=== PATIENT | male | born 1990 | race Caucasian/White ===

== ENCOUNTER 2024-08-05 09:56 | Outpatient (AMB) | payer BC, SELFPAY ==
--- NOTE | 2024-08-05 10:14 | A.OFFPC_ITS ---
Vital Signs 08/05/24 10:21 Height 5 ft 5 in Weight 223 lb BMI 37.1 BP 102/60 Blood Pressure Location Rt brachial Position Sitting Respiration 14 Pulse 67 Pulse Source Pulse Oximeter Temp 98.1 F Temp Source Oral Pulse Oximetry (%) 97 Oxygen Delivery Method Room Air Intake Visit Reasons: Headaches Intake Note: Establish care /pt states he has been have headaches more constantly than usual pt has taken otc meds which helps but hes been taking otc med to often and does not want to over take these meds everyday. Allergies No Known Allergies Allergy (Verified 08/05/24 10:17) Medication List - Last Reconciled 08/05/24 by Aguila Whipple MD No Known Home Meds Tobacco use date assessed: 08/05/24 Dental Screening Dental Screen Date: 08/05/24 Did you have a dental visit in the last 12 months?: Yes Did you have a dental problem in the last 6 months where you did not have access to dental care?: Yes Was dental information given to patient?: Patient has dentist HPI Headaches HPI Details New Patient? ?? Prior PCP:? No Pcp in past 5 yrs Acute issue(s):? Was getting daily H/As a few mos ago but decreased now. Posterior H/As. About 7 Yrs ago had head trauma to back of head/concussion. Couple times a week to couple a month. Tries Excedrin. ?? PMHx:? None SurgHx:? R wrist fx repair. FHx:? GM Throat CA. SocHx:? quit cigs 6 yrs ago. Vapes. EtOH 1-2 dr twice a week. MJ daily. [facility] Medical History (Updated 08/05/24 @ 10:48 by Adalberto De La Cruz) Diya's fracture Social History Housing: Apartment Patient Tobacco Use Status: Never used Tobacco e-Cigarette/Vaping Use: Currently Using service: No Current occupational status: employed Current occupation: production Current occupational exposures/hazards: No Cognitive needs: No Hearing needs: No Vision needs: No Questionnaire PHQ-9 Over the last 2 weeks, how often have you been bothered by any of the following problems? 1. Little interest or pleasure in doing things: not at all 2. Feeling down, depressed, or hopeless: not at all 3. Trouble falling or staying asleep, or sleeping too much: not at all 4. Feeling tired or having little energy: not at all 5. Poor appetite or overeating: not at all 6. Feeling bad about yourself - or that you are a failure or have let yourself or your family down: not at all 7. Trouble concentrating on things, such as reading the newspaper or watching television: not at all 8. Moving or speaking so slowly that other people could have noticed. Or the opposite - being so fidgety or restless that you have been moving around a lot more than usual: not at all 9. Thoughts that you would be better off or of hurting yourself in some way: not at all Total score: 0 Depression Screening Interpretation: Negative Depression Screening Done: Yes 96512 - PHQ-9 Billing: Yes Source: Developed by Drs. Seymour Das, Courtney Stoll, Tereso Simental and colleagues, with an educational dinah from [employer] Thrive Questionnaire Date Thrive assessed: 08/05/24 I am a: Patient What is your living situation today?: I have a steady place to live Within the past 12 months, did the food you bought not last and you didn't have the money to get more?: Never true Within the past 12 months, did you worry whether your food would run out before you got money to buy more?: Never true Do you have trouble paying for medicines?: No Do you have trouble getting transportation to medical appointments?: No Do you have trouble paying your heating and electricity bill?: No Do you have trouble taking care of your child, family member or friend?: No Do you have trouble with day-to-day activities such as bathing, preparing meals, shopping, managing finances, etc.?: No Are you currently unemployed and looking for a job?: No Are you interested in more education?: No Please select the resources that you would like help with: None Currently or been in a relationship where the following occur: No concerns reported THRIVE Score: 0 AUDIT C Alcohol Use Questionnaire (AUDIT-C) 1. How often do you have a drink containing alcohol?: 2-3 times a week 2. How many drinks containing alcohol do you have on a typical day when you are drinking?: 1 or 2 3. How often do you have six or more drinks on one occasion?: Never Total Score: 3 DANYA-7 AMB Questionnaire DANYA-7 Date DANYA - 7 assessed: 08/05/24 Feeling nervous, anxious, or on edge: 0 = Not at all Not being able to stop or control worryin = Not at all Worrying too much about different things: 0 = Not at all Trouble relaxin = Not at all Being so restless that it is hard to sit still: 0 = Not at all Becoming easily annoyed or irritable: 0 = Not at all Feeling afraid as if something awful might happen: 0 = Not at all Total DANYA-7 score (0-4 normal; 5-9 mild; 10-14 moderate; 15-21 severe): 0 Source: Developed by Drs. Seymour Das, Courtney Stoll, Tereso Simental and colleagues, with an educational dinah from [employer] DANYA-7 Assessment Billing DANYA-7 Assessment Tool: DANYA-7 Assessment 40309 Review of Systems Const Denies chills, Denies fatigue, Denies fever(s), Reports headache(s) and Denies weakness ENT Denies dizziness, Reports headache(s) and Reports neck pain Card Denies chest pain, Denies lightheadedness, Denies dyspnea and Denies other (Palpitations) Resp Denies cough, Denies dyspnea, Denies wheezing and Denies other ( shortness of breath) Musc Reports neck pain, Denies numbness and Denies tingling Neuro Denies dizziness, Reports headache(s), Denies numbness, Denies tingling, Denies paresthesias and Denies weakness Psych Denies anxiety and Denies depression Endo Denies fatigue Aller/Immun Denies wheezing Physical exam (Primary Care) Vital Signs: Last Vital Signs Temp 98.1 F 08/05/24 10:21 Pulse 67 08/05/24 10:21 Resp 14 08/05/24 10:21 BP 102/60 08/05/24 10:21 Pulse Ox 97 08/05/24 10:21 Oxygen Delivery Method Room Air 08/05/24 10:21 BMI result Body Mass Index 37.1 Tobacco/Smoking Status: Tobacco use Status Tobacco use date assessed 08/05/24 08/05/24 10:25 Patient Tobacco Use Status Never used Tobacco 08/05/24 10:25 e-Cigarette/Vaping Use Currently Using 08/05/24 10:25 PHQ-9: PHQ-9 Score PHQ-9: Total score 0 08/05/24 10:25 Depression Screening Interpretation: Negative Thrive Assessment: Date of Thrive Assessment Date Thrive assessed 08/05/24 08/05/24 10:25 Currently or been in a relationship where the following occur: No concerns reported Const General: no acute distress and well developed Nutritional Appearance: well nourished Orientation/consciousness: patient oriented x3 HENMT Head: Yes normocephalic and Yes atraumatic Eyes General: appearance normal, both eyes and all related structures Pupils: Equal, round and reactive pupils present EOM: EOMs intact bilaterally Resp Effort & Inspection: normal respiratory effort Auscultation: clear to auscultation bilaterally Cardio Rate: regular rate Rhythm: regular rhythm Heart sounds: S1 normal heart sound present, S2 normal heart sound present, no gallops, no murmurs and no rubs Neuro General: patient oriented x3 and gait normal Cranial nerves: Yes Equal, round and reactive pupils present Psych Affect: normal affect Coding Level of Care Code New Pt Level 3 (24813) Diagnoses Headache R51.9 Laboratory exam ordered as part of routine general medical examination Z00.00 Cervicalgia M54.2 Additional Codes DANYA-7 Assessment Billing - DANYA-7 Assessment Tool: DANYA-7 Assessment 53533 ([id number]) PHQ-9 - 19985 - PHQ-9 Billing: Yes ([id number]) Assessment & Plan Assessment & Plan (1) Headache: Code(s): R51.9 - Headache, unspecified Category: Medical Plan: Chronic?posterior?headaches And?patient?has?significant?tension?in?trapezius?and?paraspinous?muscles?of?the? cervical?spine,?bilaterally Can?use?ice/heat,?gentle?stretching?and?I?have?referred?him?to?physical?therapy. If?not?improving?will?consider?imaging?and?referral (2) Laboratory exam ordered as part of routine general medical examination: Code(s): Z00.00 - Encounter for general adult medical examination without abnormal findings Category: Medical Plan: Check?labs (3) Cervicalgia: Code(s): M54.2 - Cervicalgia Category: Medical Plan: Physical?therapy?as?above Orders: Orders HIV Ab/Ag Today Z11.3 - Encounter for screening for infections with a predominantly sexual mode of transmission Hepatitis B,C Profile Today Z11.3 - Encounter for screening for infections with a predominantly sexual mode of transmission TSH reflex Free T4 Today Z00.00 - Encounter for general adult medical examination without abnormal findings Complete Blood Count Auto Diff Today Z00.00 - Encounter for general adult medical examination without abnormal findings PT Evaluation and Treatment Today M54.2 - Cervicalgia, R51.9 - Headache, unspecified Comprehensive [place]. Panel Fast Today Z00.00 - Encounter for general adult medical examination without abnormal findings CT NG by PCR Today Z11.3 - Encounter for screening for infections with a predominantly sexual mode of transmission Lipid Panel Today Z00.00 - Encounter for general adult medical examination without abnormal findings Microalbumin, Random (w Creat) Today I10 - Essential (primary) hypertension Syphilis Screen Today Z11.3 - Encounter for screening for infections with a predominantly sexual mode of transmission UA and rflx microscopic Today Z00.00 - Encounter for general adult medical examination without abnormal findings Erythrocyte Sedimentation Rate Today M54.2 - Cervicalgia, R51.9 - Headache, unspecified
[2024-08-05 10:21] VITALS: BP 102/60; PULSE 67; RESP 14; TEMP 36.7; O2SAT 97; BMI 37.1
== END 2024-08-05 10:55 | disposition home or self-care (01) ==
PROVIDERS: Visit Provider Family Medicine
DX: R51.9 Headache, unspecified (principal); Z00.00 Encounter for general adult medical examination without abnormal findings; M54.2 Cervicalgia

== ENCOUNTER → 2024-08-05 09:56 | Outpatient (BNVA) | payer BC, SELFPAY | PROVIDERS: Visit Provider Family Medicine | DX: R51.9 Headache, unspecified (principal); M54.2 Cervicalgia | CPT/HCPCS: 96127 ==

== ENCOUNTER 2024-09-16 10:01 | Outpatient (REF) | payer BC, SELFPAY ==
[2024-09-16 11:44] LABS: Appearance Urine Clear; Color Urine Yellow; Glucose Urine UA Negative (Negative); Leukocyte Esterase Urine Negative (Negative); Nitrite Urine Negative (Negative); Urine Blood Negative (Negative); Urine Ketones Negative (Negative); Urine Protein Negative (Neg-Trace)
[2024-09-16 11:48] LABS: MANUAL DIFF FLAG NO
[2024-09-16 11:52] LABS: Basophils Percent Auto 0.4 % (0-2); Eosinophils Absolute Auto 0.2 X10*3/uL (0.0-0.4); Hemoglobin 15.6 g/dl (14.0-18.0); Imm Gran Abs Auto 0.01 X10*3/uL (0.00-0.03); Imm Gran Pct Auto 0.2 % (0.0-0.4); Lymphocytes Absolute Auto 1.7 X10*3/uL (1.2-4.9); Lymphocytes Percent Auto 29.3 % (20-40); Mean Corpuscular HGB Conc 34.7 g/dl (31.0-36.0); Mean Corpuscular Hemoglobin 31.8 pg (27.0-33.0); Mean Corpuscular Volume 91.6 fL (80.0-98.0); Mean Platelet Volume 10.5 fL (9.4-12.4); Monocytes Absolute Auto 0.5 X10*3/uL (0.1-1.2); Neutrophils Absolute Auto 3.3 x10*3/uL (2.0-8.3); Neutrophils Percent Auto 58.1 % (45-73); Platelet Count 206 X10*3/uL (160-400); Red Blood Count 4.91 X10*6/uL (4.60-5.80); Red Cell Distribution Width 11.8 % (11.0-16.0); White Blood Count 5.7 X10*3/uL (4.8-10.8)
[2024-09-16 12:18] LABS: Erythrocyte Sedimentation Rate 2 MM/HR (0-15)
[2024-09-16 12:28] LABS: Alanine Aminotransferase 33 U/L (0-40); Albumin Level 4.5 g/dL (3.5-5.0); Alkaline Phosphatase 72 U/L (39-117); Anion Gap 11 (12-20); Aspartate Amino Transferase 32 U/L (5-37); Bilirubin Total 0.3 mg/dL (0.0-1.0); Blood Urea Nitrogen 18 mg/dL (9-16); Calcium 9.1 mg/dL (8.4-10.2); Carbon Dioxide 25 mmol/L (22-29); Chloride 106 mmol/L (96-108); Cholesterol 177 mg/dL (<200); Estimated Glomerular Filt Rate > 60; Glucose Fasting 87 mg/dL (60-99); HDL Cholesterol 50 mg/dL (>40); LDL Cholesterol Calculated 96 mg/dL (<100); Potassium 4.3 mmol/L (3.3-5.1); Sodium 138 mmol/L (135-145); TSH reflex Free T4 1.76 uIU/mL (0.32-4.0); Total Protein 7.2 g/dL (6.5-8.0); Triglycerides 157 mg/dL (<150)
[2024-09-16 12:38] LABS: Creatinine Urine 97.05 mg/dL; Microalbumin Urine < 5.0 mg/L
[2024-09-16 13:14] LABS: CT PCR NOT DETECTED (Not Detect.); NG PCR NOT DETECTED (Not Detect.)
[2024-09-16 14:46] LABS: HBS Num1 218.75 mIU/mL (0-7.99); HBc Num1 0.19 S/CO (0.00-0.79); HBsAGNum1 0.35 S/CO (0.00-0.99); HIV AB/AG Nonreactive (Nonreactive); HIV Num 1 0.05 S/CO (0.00-0.99); Hepatitis B Core Antibody Nonreactive (Nonreactive); Hepatitis B Surface Antigen Negative (Negative); ~HepC Num1 0.19 S/CO (0.00-0.79); ~Hepatitis B Surface Antibody REACTIVE (Nonreactive); ~Hepatitis C Antibody Nonreactive (Nonreactive)
[2024-09-16 14:47] LABS: Syphilis Screen Nonreactive (Nonreactive)
== END 2024-09-16 10:02 | disposition home or self-care (01) ==
LOC: HO.WFDLDS 10:01
PROVIDERS: Visit Provider Family Medicine
DX: Z00.00 Encounter for general adult medical examination without abnormal findings (principal); Z11.3 Encounter for screening for infections with a predominantly sexual mode of transmission; I10 Essential (primary) hypertension; R51.9 Headache, unspecified; M54.2 Cervicalgia
CPT/HCPCS: 80053; 80061; 81003; 82043; 82570; 84443; 85025; 85652; 86704; 86706; 86780; 86803; 87340; 87389; 87491; 87591

== ENCOUNTER → 2024-10-07 16:21 | Outpatient (BNVA) | payer BC, SELFPAY | PROVIDERS: PCP Family Medicine; Visit Provider Family Medicine ==

== ENCOUNTER → 2024-10-07 16:21 | Outpatient (AMB) | payer BC, SELFPAY ==
--- NOTE | 2024-10-07 16:23 | A.OFFPC_ITS ---
Vital Signs 10/07/24 16:25 Height 5 ft 5 in Weight 218 lb 4 oz BMI 36.3 BP 110/70 Blood Pressure Location Rt brachial Position Sitting Respiration 14 Pulse 79 Pulse Source Pulse Oximeter Temp 99.1 F Temp Source Oral Pulse Oximetry (%) 97 Oxygen Delivery Method Room Air Intake Visit Reasons: f/u on headaches Intake Note: f/u on headaches Allergies No Known Allergies Allergy (Verified 10/07/24 16:24) Tobacco use date assessed: 08/05/24 Dental Screening Dental Screen Date: 08/05/24 [facility] Medical History (Updated 08/05/24 @ 10:48 by Adalberto De La Cruz) Diya's fracture Social History Housing: Apartment Patient Tobacco Use Status: Never used Tobacco e-Cigarette/Vaping Use: Currently Using service: No Current occupational status: employed Current occupation: production Current occupational exposures/hazards: No Cognitive needs: No Hearing needs: No Vision needs: No Questionnaire PHQ-9 Over the last 2 weeks, how often have you been bothered by any of the following problems? 1. Little interest or pleasure in doing things: not at all 2. Feeling down, depressed, or hopeless: not at all 3. Trouble falling or staying asleep, or sleeping too much: not at all 4. Feeling tired or having little energy: not at all 5. Poor appetite or overeating: not at all 6. Feeling bad about yourself - or that you are a failure or have let yourself or your family down: not at all 7. Trouble concentrating on things, such as reading the newspaper or watching television: not at all 8. Moving or speaking so slowly that other people could have noticed. Or the opposite - being so fidgety or restless that you have been moving around a lot more than usual: not at all 9. Thoughts that you would be better off or of hurting yourself in some way: not at all Total score: 0 Source: Developed by Drs. Seymour Das, Courtney Stoll, Tereso Simental and colleagues, with an educational dinah from [employer]. Thrive Questionnaire Date Thrive assessed: 09/30/24 I am a: Patient What is your living situation today?: I have a steady place to live Within the past 12 months, did the food you bought not last and you didn't have the money to get more?: Never true Within the past 12 months, did you worry whether your food would run out before you got money to buy more?: Never true Do you have trouble paying for medicines?: No Do you have trouble getting transportation to medical appointments?: No Do you have trouble paying your heating and electricity bill?: No Do you have trouble taking care of your child, family member or friend?: No Do you have trouble with day-to-day activities such as bathing, preparing meals, shopping, managing finances, etc.?: No Are you currently unemployed and looking for a job?: No Are you interested in more education?: No Please select the resources that you would like help with: None Currently or been in a relationship where the following occur: No concerns reported THRIVE Score: 0 AUDIT C Alcohol Use Questionnaire (AUDIT-C) 1. How often do you have a drink containing alcohol?: 2-3 times a week 2. How many drinks containing alcohol do you have on a typical day when you are drinking?: 1 or 2 3. How often do you have six or more drinks on one occasion?: Never Total Score: 3 DANYA-7 AMB Questionnaire DANYA-7 Date DANYA - 7 assessed: 08/05/24 Feeling nervous, anxious, or on edge: 0 = Not at all Not being able to stop or control worryin = Not at all Worrying too much about different things: 0 = Not at all Trouble relaxin = Not at all Being so restless that it is hard to sit still: 0 = Not at all Becoming easily annoyed or irritable: 0 = Not at all Feeling afraid as if something awful might happen: 0 = Not at all Total DANYA-7 score (0-4 normal; 5-9 mild; 10-14 moderate; 15-21 severe): 0 Source: Developed by Drs. Seymour Das, Courtney Stoll, Tereso Simental and colleagues, with an educational dinah from [employer]. Physical exam (Primary Care) Vital Signs: Last Vital Signs Temp 99.1 F 10/07/24 16:25 Pulse 79 10/07/24 16:25 Resp 14 10/07/24 16:25 BP 110/70 10/07/24 16:25 Pulse Ox 97 10/07/24 16:25 Oxygen Delivery Method Room Air 10/07/24 16:25 BMI result Body Mass Index 36.3 Tobacco/Smoking Status: Tobacco use Status Tobacco use date assessed 08/05/24 10/07/24 16:28 Patient Tobacco Use Status Never used Tobacco 10/07/24 16:28 e-Cigarette/Vaping Use Currently Using 10/07/24 16:28 PHQ-9: PHQ-9 Score PHQ-9: Total score 0 10/07/24 16:28 Thrive Assessment: Date of Thrive Assessment Date Thrive assessed 09/30/24 10/07/24 16:28 Currently or been in a relationship where the following occur: No concerns reported Coding Level of Care Code Est Pt Level 3 (93099) Diagnoses Headache R51.9 Cervicalgia M54.2 Comment Patient?does?not?want?to?be?bill?because?physical?therapy?did?not?call?him; hasn't started Assessment & Plan Assessment & Plan (1) Headache: Code(s): R51.9 - Headache, unspecified Category: Medical Plan: Ongoing?headaches?primarily?posterior?and?associated?with?neck?pain Patient?says?he?is?concerned?regarding?intracranial?process. He?has?a?completely?normal?neuro?exam?again?today. Had?referred?him?for?physical?therapy?as?these?still?appeared?to?be?post erior?in?tension?style?headaches?associated?with?cervicalgia. He?has?not?been?contacted?by?physical?therapy.??Will?ask?the?office?staff?to?hel p?get?him?scheduled. Discussed?that?if?he?does?not?make?a ny?progress?physical?therapy?we?will?continue?to?work?at?his?headaches?and?could ?consider?medications?and?other?treatments. He?will?let?me?know?if?there?is?any?change?in symptoms. Would?consider?imagi ng?if?there?is?any?significant?change?or?if?he?is?not?improving?treatments.??Wou ld?consider?referral?to?Neurology or?the?regional?headache?center?as?well. (2) Cervicalgia: Code(s): M54.2 - Cervicalgia Category: Medical Plan: As?above,?patient?is?re ferred?to?physical?therapy?and?I?am?asking?the?office?to?get?him?scheduled.
[2024-10-07 16:25] VITALS: BP 110/70; PULSE 79; RESP 14; TEMP 37.3; O2SAT 97; BMI 36.3
== END ==
PROVIDERS: PCP Family Medicine; Visit Provider Family Medicine
DX: R51.9 Headache, unspecified (principal); M54.2 Cervicalgia

== ENCOUNTER 2024-11-29 10:00 | Outpatient (RCR) | payer BC, SELFPAY ==
--- NOTE | 2024-11-22 15:12 | MHC.PT.EP ---
[facility] [place] Office [place] Office [place] Office [address] Dereje Angel [address] [phone] F: [phone] F: [phone] F: [phone] F: [phone] Physical Therapy Plan of Care Date of Evaluation: 11/22/24 Date of Surgery: Diagnosis: PT eval and treat, M54.2 Cervicalgia R 51.9 Headaches, unspecified Cervicalgia, Headache date of script 08/08/[address] Aguila Whipple Assessment: Pt is a RHD 34 /o male, referred to PT for treatment, PT eval and treat, M54.2 Cervicalgia R 51.9 Headaches, unspecified Cervicalgia, Headache date of script 08/08/[address] Aguila Whipple Pt presents to the office today, 11/22/24 expressing resolution of headache/neck sx after change in specific bed pillow. Pt admits , I have my girlfriend walk on my back to crack it. Pt advised against this activity and was shown ways to stretch midback/pecs via of foam roller in supine and standing and SL exercises. Pt states he no longer needs excedrin and has not had any sx. Pt exhibits decreased postural awareness and mild weakness of middle/lower trap, tightness of posterior cervical musculature with report for no formal exercise program. He was educated in neck safety, postural impacts, and goals of PT. Pt was shown a few flexibility exercises for CS/ and thoracic spine to improve posture/flexibility. 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 Pt will benefit from attending skilled PT services to establish a HEP, educate re: goal of reducing mid back pain, ensure headache sx do not return. Pt agreeable to POC. Pt verbalizes understanding and was issued a written program. Pt will be seen in about a week's time after transition to new office space from [place] to [place]. Frequency and Duration: The patient will be seen 1x/week Short Term Goals: 1. Establish HEP for and self care stretching program. 2. Pt will express ongoing resolution of headache sx. 3. Pt will demonstrate increased pec minor length bilaterally. 4. Good insight to safety for neck and back care. Custodial Goals: 1. Pt will express no return of headache sx. 2. Pt will demonstrate strength middle and lower trap 5/5 B. 3. Pt will be I HEP. 4. I with self strategy for relief of upper mid back pain. 5. Good body mechanics as it relates to job and recreational activities. Treatment Plan: Modalities to reduce pain, spasms and effusion. Manual therapy to restore motion and function. Therapeutic exercise to improve strength and flexibility. Neuromuscular re-education for posture and balance. Therapeutic activities to return to functional activities of daily living. Electronically signed by: Katya Toscano, PT, DPT Please sign and return to therapist. Thank you for your referral.
== END 2025-01-16 11:18 | disposition home or self-care (01) ==
LOC: HO.PTS 10:00
PROVIDERS: PCP Family Medicine; Visit Provider Family Medicine
DX: M54.2 Cervicalgia (principal); R51.9 Headache, unspecified
CPT/HCPCS: 97110; 97161; 97535